=== PATIENT | female | born 1995 | race Two or more races ===

== ENCOUNTER 2019-01-31 20:49 | Emergency (ER) | payer MEDICAID ==
[~2019-01-31] VITALS: Ht 167.6 cm; Wt 72.6 kg
[~2019-01-31 20:49] MED LIST: FERR325T50 PO; PREN-96 PO
[2019-01-31 21:35] VITALS: BP 112/76
[2019-02-01] MEDS ORDERED: HYDROcodone-ACET 10/325MG TAB PO ONE
[2019-02-01] MEDS ORDERED: TRIAMCINOLONE 40MG/ML 1ML VIAL IX ONE
[2019-02-01] MEDS ORDERED: BACLOFEN 10 MG TAB PO ONE
[2019-02-01] MEDS ORDERED: LIDOCAINE W/ EPINEPHRINE 2% INJ 20ML VIAL IJ ONE
== END 2019-02-01 00:55 | disposition home or self-care (01) ==
LOC: ER 20:54
DX: S33.5XXA Sprain of ligaments of lumbar spine, initial encounter (principal); M54.16 Radiculopathy, lumbar region; Z79.899 Other long term (current) drug therapy; X50.1XXA Overexertion from prolonged static or awkward postures, initial encounter; Y93.89 Activity, other specified; Y99.8 Other external cause status; Y92.89 Other specified places as the place of occurrence of the external cause
CPT/HCPCS: 20552; 99284; J3301

== ENCOUNTER 2021-10-04 13:08 | Emergency (ER) | payer MEDICAID ==
[~2021-10-04] VITALS: Ht 167.6 cm; Wt 86.2 kg
[2021-10-04 14:22] LABS: Urine Bacteria NONE SEEN /hpf (None Seen); Urine Blood Negative /uL (Negative); Urine Mucus FEW (None Seen); Urine Specific Gravity 1.025 (1.001-1.035); Urine WBC 7 /hpf (0 - 5)
[2021-10-04] MEDS ORDERED: SODIUM CHLORIDE 0.9% 1,000 ML IV ONE (15:00)
[2021-10-04] MEDS ORDERED: ONDANSETRON HCL 4 MG/2 ML VIAL IV ONE (15:00)
[2021-10-04 15:31] LABS: Basophils # (auto) 0 10 ^3/uL (0-0.2); Basophils % (auto) 0.4 % (0.0-2.0); Eosinophils # (auto) 0 10 ^3/uL (0-0.8); Eosinophils % (auto) 0.2 % (0.0-7.0); Hematocrit 37.1 % (36.0-46.0); Hemoglobin 12.8 g/dL (12.2-16.2); Lymphocytes # (auto) 2.4 10 ^3/uL (0.4-5.4); Lymphocytes % (auto) 28.8 % (10.0-50.0); Mean Corpuscular Hemoglobin 31.3 pg (28.0-32.0); Mean Corpuscular Hgb Conc. 34.5 g/dL (32.0-36.0); Mean Corpuscular Volume 90.6 fL (80.0-100.0); Monocytes # (auto) 0.4 10 ^3/uL (0-1.3); Monocytes % (auto) 5.2 % (0.0-12.0); Neutrophils # (auto) 5.6 10 ^3/uL (1.6-8.6); Neutrophils % (auto) 65.4 % (37.0-80.0); Nucleated Red Blood Cells % 0.1 %; Red Blood Cells 4.09 10^6/uL (4.0-5.20); Red Cell Distribution Width 12.3 % (11.8-14.3); White Blood Cell 8.5 10^3/uL (4.4-10.8)
[2021-10-04 15:51] LABS: BUN/Creatinine Ratio 12.5; Calcium 8.6 mg/dL (8.5-10.1)
[2021-10-04] MEDS ORDERED: cefTRIAXone 1GM/50ML D5W 50 ML IV ONE (16:00)
[2021-10-04] MEDS ORDERED: NITR-87 PO (16:33)
[2021-10-04] MEDS ORDERED: ONDA-144 PO (16:33)
[2021-10-04 16:49] VITALS: BP 107/72
== END 2021-10-04 16:58 | disposition home or self-care (01) ==
LOC: ER 13:08
DX: O21.8 Other vomiting complicating pregnancy (principal); O23.41 Unspecified infection of urinary tract in pregnancy, first trimester; N39.0 Urinary tract infection, site not specified; Z79.899 Other long term (current) drug therapy; Z3A.01 Less than 8 weeks gestation of pregnancy
CPT/HCPCS: 36415; 80048; 81001; 81025; 85025; 96365; 96375; 99284; J0696; J2405; J7030

== ENCOUNTER → 2022-02-28 | Outpatient (CLI) | payer MEDICAID ==
[~2022-02-28] MED LIST changes: +NITR-87 PO; +ONDA-144 PO
[2022-02-28 09:00] LABS: Basophils # (auto) 0 10 ^3/uL (0-0.2); Basophils % (auto) 0.4 % (0.0-2.0); Eosinophils # (auto) 0.1 10 ^3/uL (0-0.8); Eosinophils % (auto) 0.5 % (0.0-7.0); Hematocrit 31.5 % (36.0-46.0); Hemoglobin 10.9 g/dL (12.2-16.2); Lymphocytes # (auto) 2.3 10 ^3/uL (0.4-5.4); Lymphocytes % (auto) 18.4 % (10.0-50.0); Mean Corpuscular Hemoglobin 31.8 pg (28.0-32.0); Mean Corpuscular Hgb Conc. 34.5 g/dL (32.0-36.0); Mean Corpuscular Volume 92.3 fL (80.0-100.0); Monocytes # (auto) 0.6 10 ^3/uL (0-1.3); Monocytes % (auto) 4.7 % (0.0-12.0); Neutrophils # (auto) 9.4 10 ^3/uL (1.6-8.6); Red Blood Cells 3.42 10^6/uL (4.0-5.20); Red Cell Distribution Width 12.3 % (11.8-14.3); White Blood Cell 12.4 10^3/uL (4.4-10.8)
== END | disposition home or self-care (01) ==
LOC: LAB 08:29
PROVIDERS: ATTEND Obstetrics & Gynecology
DX: Z34.80 Encounter for supervision of other normal pregnancy, unspecified trimester (principal)
CPT/HCPCS: 36415; 82951; 85025

== ENCOUNTER → 2022-04-18 | Outpatient (CLI) | payer MEDICAID ==
[2022-04-18 11:08] LABS: Basophils # (auto) 0 10 ^3/uL (0-0.2); Basophils % (auto) 0.3 % (0.0-2.0); Eosinophils # (auto) 0.1 10 ^3/uL (0-0.8); Eosinophils % (auto) 0.5 % (0.0-7.0); Hemoglobin 11.3 g/dL (12.2-16.2); Lymphocytes # (auto) 2.1 10 ^3/uL (0.4-5.4); Mean Corpuscular Hemoglobin 31.7 pg (28.0-32.0); Mean Corpuscular Hgb Conc. 35.2 g/dL (32.0-36.0); Mean Corpuscular Volume 89.9 fL (80.0-100.0); Monocytes # (auto) 0.5 10 ^3/uL (0-1.3); Monocytes % (auto) 4.8 % (0.0-12.0); Neutrophils # (auto) 7.9 10 ^3/uL (1.6-8.6); Neutrophils % (auto) 74.4 % (37.0-80.0); Nucleated Red Blood Cells % 0.1 %; Red Blood Cells 3.56 10^6/uL (4.0-5.20); Red Cell Distribution Width 12.7 % (11.8-14.3); White Blood Cell 10.6 10^3/uL (4.4-10.8)
[2022-04-19 05:06] LABS: RPR Non Reactive (Non Reactive)
== END | disposition home or self-care (01) ==
LOC: LAB 10:35
PROVIDERS: ATTEND Obstetrics & Gynecology
DX: Z34.80 Encounter for supervision of other normal pregnancy, unspecified trimester (principal)
CPT/HCPCS: 36415; 84112; 85025; 86592

== ENCOUNTER 2022-05-01 08:39 | Observation (INO) | payer MEDICAID | END 2022-05-01 11:16 | disposition home or self-care (01) | LOC: LDRP 08:39 → UNDOADMOB 08:39 → LDRP 09:25 | PROVIDERS: ADMIT Obstetrics & Gynecology; ATTEND Obstetrics & Gynecology | DX: O62.9 Abnormality of forces of labor, unspecified (principal); O26.893 Other specified pregnancy related conditions, third trimester; R42 Dizziness and giddiness; R60.0 Localized edema; Z3A.37 37 weeks gestation of pregnancy | CPT/HCPCS: 59025; 81002; 84112; 94760; G0378; Q0114 ==

== ENCOUNTER 2022-05-22 08:55 | Observation (INO) | payer MEDICAID ==
[~2022-05-22] VITALS: Ht 167.6 cm; Wt 103.0 kg
[~2022-05-22 08:55] MED LIST changes: -FERR325T50 PO; -NITR-87 PO; -ONDA-144 PO
== END 2022-05-22 11:05 | disposition home or self-care (01) ==
LOC: UNDOADMOB 08:55 → LDRP 08:55 → UNDODISOB 11:05
PROVIDERS: ADMIT Obstetrics & Gynecology; ATTEND Obstetrics & Gynecology
DX: O48.0 Post-term pregnancy (principal); O26.893 Other specified pregnancy related conditions, third trimester; N89.8 Other specified noninflammatory disorders of vagina; O62.9 Abnormality of forces of labor, unspecified; Z3A.40 40 weeks gestation of pregnancy
CPT/HCPCS: 59025; 76818; 81002; 94760; G0378

== ENCOUNTER 2022-05-24 10:00 | Observation (INO) | payer MEDICAID | END 2022-05-24 12:28 | disposition home or self-care (01) | LOC: LDRP 10:00 → UNDOADMOB 10:00 → LDRP 11:06 → UNDODISOB 12:28 | PROVIDERS: ADMIT Obstetrics & Gynecology; ATTEND Obstetrics & Gynecology | DX: O48.0 Post-term pregnancy (principal); O62.9 Abnormality of forces of labor, unspecified; Z3A.40 40 weeks gestation of pregnancy | CPT/HCPCS: 59025; 76818; 81002; G0378 ==

== ENCOUNTER 2022-05-26 08:54 | Observation (INO) | payer MEDICAID ==
[~2022-05-26] VITALS: Ht 167.6 cm; Wt 103.0 kg
== END 2022-05-26 12:10 | disposition home or self-care (01) ==
LOC: LDRP 08:54
PROVIDERS: ADMIT Obstetrics & Gynecology; ATTEND Obstetrics & Gynecology
DX: O48.0 Post-term pregnancy (principal); O62.9 Abnormality of forces of labor, unspecified; Z3A.40 40 weeks gestation of pregnancy; Z87.891 Personal history of nicotine dependence
CPT/HCPCS: 59025; 76818; 81002; 94760; G0378

== ENCOUNTER 2022-05-27 21:45 | Inpatient (IN) | payer MEDICAID ==
[~2022-05-27] VITALS: Ht 167.6 cm; Wt 103.0 kg
[2022-05-27] MEDS ORDERED: PROMETHAZINE HCL 25 MG/ML 1ML IV PRN (22:00)
[2022-05-27] MEDS ORDERED: BUTORPHANOL TARTRATE 2 MG/1 ML VIAL IV PRN ×2 (22:00)
[2022-05-27] MEDS ORDERED: PHISODERM TOP SOLN 240ML BTL TOP PRN (22:00)
[2022-05-27] MEDS ORDERED: LIDOCAINE 2%HCL (LOCAL ANESTH.) INJ 10ml MDV IJ PRN (22:00)
[2022-05-27 22:43] LABS: Basophils # (auto) 0 10 ^3/uL (0-0.2); Basophils % (auto) 0.3 % (0.0-2.0); Eosinophils # (auto) 0 10 ^3/uL (0-0.8); Eosinophils % (auto) 0.3 % (0.0-7.0); Hematocrit 32.7 % (36.0-46.0); Hemoglobin 10.8 g/dL (12.2-16.2); Lymphocytes # (auto) 2.5 10 ^3/uL (0.4-5.4); Lymphocytes % (auto) 22.4 % (10.0-50.0); Mean Corpuscular Hemoglobin 29.3 pg (28.0-32.0); Mean Corpuscular Hgb Conc. 33.1 g/dL (32.0-36.0); Mean Corpuscular Volume 88.7 fL (80.0-100.0); Monocytes # (auto) 0.5 10 ^3/uL (0-1.3); Monocytes % (auto) 4.1 % (0.0-12.0); Neutrophils # (auto) 8.1 10 ^3/uL (1.6-8.6); Neutrophils % (auto) 72.9 % (37.0-80.0); Nucleated Red Blood Cells % 0.1 %; Red Blood Cells 3.69 10^6/uL (4.0-5.20); Red Cell Distribution Width 13.6 % (11.8-14.3); White Blood Cell 11.1 10^3/uL (4.4-10.8)
[2022-05-27 22:45] LABS: Urine Bacteria FEW /hpf (None Seen); Urine Blood Negative /uL (Negative); Urine Mucus FEW (None Seen); Urine Specific Gravity 1.008 (1.001-1.035); Urine WBC 1 /hpf (0 - 5)
[2022-05-27 22:58] LABS: INR 0.92 (0.9-1.15); Partial Thromboplastin Time 29.1 sec (24.6-33.4)
[2022-05-27 23:04] LABS: Albumin 2.5 g/dL (3.4-5.0); Calcium 8.2 mg/dL (8.5-10.1); Potassium 4.2 mmol/L (3.5-5.1)
[2022-05-27 23:04] LABS: Amphetamine Screen, Urine NEGATIVE (NEGATIVE); Barbiturate Scree,Urine NEGATIVE (NEGATIVE); Benzodiazephine Screen, Urine NEGATIVE (NEGATIVE); Cannabinoid Screen, Urine NEGATIVE (NEGATIVE); Cocaine Screen, Urine NEGATIVE (NEGATIVE); Opiate Scree,Urine NEGATIVE (NEGATIVE); Phencyclidine Screen, Urine NEGATIVE (NEGATIVE)
[2022-05-27 23:07] LABS: BUN/Creatinine Ratio 15.4
[2022-05-27 23:10] LABS: Bilirubin, Total 0.4 mg/dL (0.2-1.0); Total Protein 6.3 g/dL (6.4-8.2)
[2022-05-27 23:11] LABS: Alcohol, Urine < 3.0 mg/dL (0-10)
[2022-05-28] MEDS ORDERED: miSOPROStol 50 MCG per PRE-CUT 1/2 TAB PO PRN
[2022-05-28] MEDS: LACTATED RINGER'S 1,000 ML IV SCH ×3 (00:28→06:10)
[2022-05-28] MEDS ORDERED: PROMETHAZINE HCL 25 MG/ML 1ML IV ONE (03:00)
[2022-05-28] MEDS ORDERED: ePHEDrine SULFATE 50 MG/ML AMP IV ONE ×2 (03:30→05:00)
[2022-05-28] MEDS ORDERED: LACT. RINGERS/OXYTOCIN 20UNITS 500 ML IV ONE ×2 (03:30→04:00)
[2022-05-28] MEDS ORDERED: NALOXONE HCL 0.4 MG/ML VIAL IV ONE ×2 (03:30→05:00)
[2022-05-28] MEDS ORDERED: LACTATED RINGER'S 1,000 ML IV ONE (03:30)
[2022-05-28] MEDS ORDERED: NS/OXYTOCIN 20UNITS 500 ML IV ONE ×2 (04:00)
[2022-05-28] MEDS ORDERED: METHYLERGONOVINE MALEATE 0.2 MG/ML AMP IM ONE (04:15)
[2022-05-28] MEDS ORDERED: ROPIVACAINE HCL 200 ML EPI SCH (05:00)
[2022-05-28] MEDS ORDERED: OXYTOCIN 10UNIT/ML 1ML VIAL ONE (05:26)
[2022-05-28] MEDS ORDERED: OXYTOCIN 20 UNT in SODIUM CHLORIDE 0.9% 1,000 ML IV ONE (06:00)
[2022-05-28] MEDS: DERMOPLAST 60ML BOTTLE TOP PRN ×2 (06:08→08:50)
[2022-05-28] MEDS: WITCH HAZEL-GLYCERIN PAD TOP PRN ×2 (06:10→08:50)
[2022-05-28 07:00] VITALS: BP 114/56
[2022-05-28] MEDS ORDERED: ACETAMINOPHEN 325 MG TAB PO PRN (07:00)
[2022-05-28] MEDS ORDERED: ONDANSETRON ODT 4 MG TAB PO PRN (07:00)
[2022-05-28] MEDS: IBUPROFEN 800 MG TAB PO SCH ×2 (08:48→16:31)
[2022-05-28 11:00] VITALS: BP 111/53
[2022-05-28] MEDS: ROPIVACAINE HCL 200 ML EPI SCH ×2 (13:18→14:22)
[2022-05-28 15:00] VITALS: BP 110/55
[2022-05-28 18:40] VITALS: BP 114/71
[2022-05-28] MEDS ORDERED: DOCUSATE SOD 100 MG CAP PO SCH (22:00)
[2022-05-28 23:08] VITALS: BP 116/65
[2022-05-29 03:07] VITALS: BP 106/69
[2022-05-29] MEDS: IBUPROFEN 800 MG TAB PO SCH ×3 (05:33→12:00)
[2022-05-29] MEDS ORDERED: DOCU100C10 PO (06:00)
[2022-05-29] MEDS ORDERED: IBUP800T26 PO (06:00)
[2022-05-29 06:07] LABS: RPR Non Reactive (Non Reactive)
[2022-05-29 07:00] VITALS: BP 108/71
[2022-05-29 11:00] VITALS: BP 135/84
[2022-05-29] MEDS: WITCH HAZEL-GLYCERIN PAD TOP PRN (13:40)
[2022-05-29 14:19] VITALS: BP 135/84
== END 2022-05-29 14:01 | disposition home or self-care (01) | DRG 560 ==
LOC: LDRP 21:45
PROVIDERS: ADMIT Obstetrics & Gynecology; ATTEND Obstetrics & Gynecology
PROC: 10E0XZZ Delivery of Products of Conception, External Approach (ICD-10-PCS; principal; 2022-05-28)
PROC: 0KQM0ZZ Repair Perineum Muscle, Open Approach (ICD-10-PCS; 2022-05-28)
PROC: 3E0R3BZ Introduction of Anesthetic Agent into Spinal Canal, Percutaneous Approach (ICD-10-PCS; 2022-05-28)
PROC: 00HU33Z Insertion of Infusion Device into Spinal Canal, Percutaneous Approach (ICD-10-PCS; 2022-05-28)
DX: O48.0 Post-term pregnancy (principal); Z37.0 Single live birth; O70.1 Second degree perineal laceration during delivery; O77.0 Labor and delivery complicated by meconium in amniotic fluid; Z3A.41 41 weeks gestation of pregnancy
CPT/HCPCS: 36415; 59025; 59409; 62282; 80053; 80307; 81001; 81002; 85025; 85610; 85730; 86592; 86850; 86900; 86901; 94760; 96360; 96361; 96365; 96366; 96372; G0378; J2001